=== PATIENT | female | born 1965 | race Caucasian/White ===

== ENCOUNTER 2018-01-06 21:47 | Emergency (ER) | payer BC, OTHER ==
[2018-01-06] MEDS ORDERED: Ondansetron 4 MG/2 ML SDV IVPUSH ONE (22:09)
[2018-01-06] MEDS ORDERED: Ketorolac 30 MG/ML SDV IVPUSH ONE (22:09)
[2018-01-06] MEDS ORDERED: Sodium Chloride 0.9% 1,000 ML IV ONE (22:09)
--- NOTE | 2018-01-06 22:11 | EDM.PDOC ---
ED HPI GENERAL MEDICAL PROBLEM - General Chief Complaint: Gastrointestinal Problem Stated Complaint: ABDOMINAL PAIN/CONSTIPATION Time Seen by Provider: 01/06/18 22:10 Source of Information: Reports: Patient - History of Present Illness INITIAL COMMENTS - FREE TEXT/NARRATIVE: HISTORY AND PHYSICAL: History of present illness: Patient presents with history of nausea and feeling of vomiting over the last 10 days she is not had a bowel movement she is nondistended rates pain 3 out of 10 diffuse nonfocal no active vomiting here in the emergency room she did get some Zofran no fever chills sweats no chest pain shortness breath headache dizziness or palpitation no urine symptoms I did discuss case with Dr. Hughes after initial workup he recommended oral retention enema O we did get a large bowel movement with this, on rectal exam there was no stool plug guaiac was negative Last colonoscopy at 41 years old due to her mother's history of cancer patient relates pancreatic cancer with extension to the colon however I question colon cancer with metastases as she received the colonoscopy Review of systems: As per history of present illness and below otherwise all systems reviewed and negative. Past medical history: As per history of present illness and as reviewed below otherwise noncontributory. Surgical history: As per history of present illness and as reviewed below otherwise noncontributory. Social history: No reported history of drug or alcohol abuse. Family history: As per history of present illness and as reviewed below otherwise noncontributory. Physical exam: HEENT: Atraumatic, normocephalic, pupils reactive, negative for conjunctival pallor or scleral icterus, mucous membranes moist, throat clear, neck supple, nontender, trachea midline. Lungs: Clear to auscultation, breath sounds equal bilaterally, chest nontender. Heart: S1S2, regular, negative for clicks, rubs, or JVD. Abdomen: Soft, nondistended, nontender. Negative for masses or hepatosplenomegaly. Negative for costovertebral tenderness. Pelvis: Stable nontender. Genitourinary: No mass scar or lesion internal or external guaiac negative Rectal: Deferred. Extremities: Atraumatic, negative for cords or calf pain. Neurovascular unremarkable. Neuro: Awake, alert, oriented. Cranial nerves II through XII unremarkable. Cerebellum unremarkable. Motor and sensory unremarkable throughout. Exam nonfocal. Diagnostics: [CBC CMP UA lipase CT abdomen pelvis with contrast ] Therapeutics: [Normal saline 1 L bolus Zofran 8 mg Iv Toradol 30 mg IV Reglan 10 mg IV ] Dr. Hughes recommends a bowel prep with clear liquid diet until clear consisting of MiraLAX 1 pint/followed by 32 ounces of Gatorade/followed by 1 pint of MiraLAX Follow-up with general surgery for colonoscopy consideration Impression: [Abdominal pain]-resolved Definitive disposition and diagnosis as appropriate pending reevaluation and review of above. abdomen Pain Score (Numeric/FACES): 6 - Related Data Allergies Allergy/AdvReac Type Severity Reaction Status Date / Time Penicillins Allergy throat Verified 01/06/18 22:09 swelling Home Meds: Home Meds Loratadine [Claritin] 1 tab PO DAILY 01/06/18 [History] Past Medical History Other OB/BYN History: x 1; hysterectomy Social & Family History - Tobacco Use Smoking Status *Q: Never Smoker Years of Tobacco use: 25 - Alcohol Use Days Per Week of Alcohol Use: 0 - Recreational Drug Use Recreational Drug Use: No ED ROS GENERAL - Review of Systems Review Of Systems: ROS reveals no pertinent complaints other than HPI. ED EXAM, GENERAL - Physical Exam Exam: See Below Course - Vital Signs Last Recorded V/S: Last Vital Signs Temp 98.3 F 01/06/18 21:47 Pulse 72 01/06/18 21:47 Resp 18 01/06/18 21:47 BP 133/79 01/06/18 21:47 Pulse Ox 99 01/06/18 21:47 - Orders/Labs/Meds Orders: Active Orders 24 hr Category Date Time Status Abdomen Pelvis w Cont [CT] Stat Exams 01/06/18 22:09 Taken Labs: Laboratory Tests 01/06/18 01/06/18 Range/Units 22:03 22:03 WBC 9.08 (4.0-11.0) K/uL RBC 4.00 L (4.30-5.90) M/uL Hgb 12.8 (12.0-16.0) g/dL Hct 37.2 (36.0-46.0) % MCV 93.0 (80.0-98.0) fL MCH 32.0 (27.0-32.0) pg MCHC 34.4 (31.0-37.0) g/dL RDW Std Deviation 41.8 (28.0-62.0) fl RDW Coeff of Immanuel 12 (11.0-15.0) % Plt Count 258 (150-400) K/uL MPV 9.80 (7.40-12.00) fL Neut % (Auto) 54.1 (48.0-80.0) % Lymph % (Auto) 34.9 (16.0-40.0) % [place] % (Auto) 8.9 (0.0-15.0) % Eos % (Auto) 1.8 (0.0-7.0) % Baso % (Auto) 0.3 (0.0-1.5) % Neut # (Auto) 4.9 (1.4-5.7) K/uL Lymph # (Auto) 3.2 H (0.6-2.4) K/uL [place] # (Auto) 0.8 (0.0-0.8) K/uL Eos # (Auto) 0.2 (0.0-0.7) K/uL Baso # (Auto) 0.0 (0.0-0.1) K/uL Nucleated RBC % 0.0 /100WBC Nucleated RBCs # 0 K/uL Sodium 140 (136-145) mmol/L Potassium 3.8 (3.5-5.1) mmol/L Chloride 107 (98-107) mmol/L Carbon Dioxide 25.5 (21.0-32.0) mmol/L BUN 17 (7.0-18.0) mg/dL Creatinine 0.8 (0.6-1.0) mg/dL Est Cr Clr Drug Dosing 65.80 mL/min Estimated GFR (MDRD) > 60.0 ml/min Glucose 109 H (74-106) mg/dL Calcium 9.9 (8.5-10.1) mg/dL Total Bilirubin 0.2 (0.2-1.0) mg/dL AST 18 (15-37) IU/L ALT 21 (14-63) IU/L Alkaline Phosphatase 96 (46-116) U/L Troponin I < 0.050 (0.000-0.056) ng/mL Total Protein 7.6 (6.4-8.2) g/dL Albumin 3.9 (3.4-5.0) g/dL Globulin 3.7 H (2.0-3.5) g/dL Albumin/Globulin Ratio 1.1 L (1.3-2.8) Meds: Medications Discontinued Medications Generic Name Dose Route Start Last Admin Trade Name Mague PRN Reason Stop Dose Admin Sodium Chloride 1,000 mls @ 999 mls/hr 01/06/18 22:09 01/06/18 22:31 Normal Saline IV 01/06/18 23:09 999 mls/hr STAT ONE Administration Iopamidol 90 ml 01/06/18 23:10 01/06/18 23:10 Isovue Multipack-370 (76%) IVPUSH 01/06/18 23:11 90 ml ONETIME ONE Administration Ketorolac Tromethamine 30 mg 01/06/18 22:09 01/06/18 22:34 Toradol IVPUSH 01/06/18 22:10 30 mg ONETIME ONE Administration Metoclopramide HCl 10 mg 01/07/18 01:04 01/07/18 01:48 Reglan IV 01/07/18 01:05 10 mg ONETIME ONE Administration Ondansetron HCl 8 mg 01/06/18 22:09 01/06/18 22:32 Zofran IVPUSH 01/06/18 22:10 8 mg ONETIME ONE Administration Departure - Departure Time of Disposition: 01:56 Disposition: Home, Self-Care 01 Condition: Good Clinical Impression: Constipation, Abdominal pain - Discharge Information Referrals: Génesis Corrales, REUSE TECHNICIAN [Primary Care Provider] - Forms: ED Department Discharge Additional Instructions: Clear liquid diet Bowel prep as discussed MiraLAX one plane followed by 32 ounces of Gatorade followed by 1 pint of MiraLAX Clear liquid diet until bowels are clear--meaning water and Gatorade Call for appointment with general surgery and appropriate follow-up number provided below Return if symptoms persist or worsen or new concerning symptoms develop [facility] - General Surgery Professional Building [address] [place] [address], [address] [place] [address] The following information is given to patients seen in the emergency department who are being discharged to home. This information is to outline your options for follow-up care. We provide all patients seen in our emergency department with a follow-up referral. The need for follow-up, as well as the timing and circumstances, are variable depending upon the specifics of your emergency department visit. If you don't have a primary care physician on staff, we will provide you with a referral. We always advise you to contact your personal physician following an emergency department visit to inform them of the circumstance of the visit and for follow-up with them and/or the need for any referrals to a consulting specialist. The emergency department will also refer you to a specialist when appropriate. This referral assures that you have the opportunity for follow-up care with a specialist. All of these measure are taken in an effort to provide you with optimal care, which includes your follow-up. Under all circumstances we always encourage you to contact your private physician who remains a resource for coordinating your care. When calling for follow-up care, please make the office aware that this follow-up is from your recent emergency room visit. If for any reason you are refused follow-up, please contact the [facility] emergency department at and asked to speak to the emergency department charge nurse. - My Orders Last 24 Hours: My Active Orders 01/06/18 22:09 Abdomen Pelvis w Cont [CT] Stat - Assessment/Plan Last 24 Hours: My Active Orders 01/06/18 22:09 Abdomen Pelvis w Cont [CT] Stat
[2018-01-06 22:45] LABS: CHLORIDE,CL 107 mmol/L (98-107); SODIUM,NA 140 mmol/L (136-145)
[2018-01-06] MEDS ORDERED: Iopamidol 755 MG/ML 200 ML Multipack Bottle IVPUSH ONE (23:10)
[2018-01-07] MEDS ORDERED: Metoclopramide 10 MG/2 ML SDV IV ONE (01:04)
[2018-01-07 02:12] VITALS: BP 121/73
--- NOTE | 2018-01-07 12:43 | CT ---
EXAM DATE: 01/06/18 PATIENT'S AGE: 52 Patient: OCTAVIO GANDHI Facility: [place], [place] Site . Site : 1965 Study: CT Abdomen/Pelvis W [place]LIN [id number]/[id number] 11:22:29 PM Ordering Physician: Doctor William Final Report: INDICATION: Abdominal pain for 3 days. Constipation for 10 days. Nausea and vomiting. TECHNIQUE: CT abdomen and pelvis acquired with i.v. 90 mL Isovue 370. Coronal and sagittal reformats were obtained. COMPARISON: Comparison CT dated 11/28/2013. FINDINGS: Senior Lead Project Manager CT images: Nonobstructive bowel gas pattern. Lower chest: Unremarkable. Liver: Unremarkable. Spleen: Unremarkable. Pancreas: Unremarkable. Gallbladder and bile ducts: Unremarkable. Kidneys: Mild fullness of right renal collecting system. Calcifications in lower pole of right kidney. No obstructing right ureteral calculi. Normal left kidney. No left hydronephrosis or abnormal dilatation of the left ureter. Adrenal glands: Unremarkable. GI tract: Unremarkable. The appendix is normal in appearance and size. Vascular: Unremarkable. Lymph nodes: No pathologically enlarged pelvic or retroperitoneal lymph nodes. Miscellaneous: The degree of mesenteric fat stranding in the left central mesentery with scattered small mesenteric lymph nodes. No soft tissue mass or calcifications. Pelvic Organs: Uterus not identified. Bladder incompletely distended. No free pelvic fluid. Bones: Unremarkable for age. Moderate degenerative disc disease at L5-S1. IMPRESSION: 1. Mild mesenteric fat stranding in the left upper abdomen with scattered small mesenteric lymph nodes, consider possible sclerosing mesenteritis. No pathologically enlarged retroperitoneal or pelvic lymph nodes. Similar findings noted in the left central mesentery on prior CT from November 2013. 2. Right nephrolithiasis with mild fullness to the right renal collecting system and possible right extrarenal pelvis. No obstructing right ureteral calculus. 3. Normal appendix. Dictated by Thomas Del Angel MD @ 01/06/2018 11:45:53 PM Please note that all CT scans at this facility use dose modulation, iterative reconstruction, and/or weight-based dosing when appropriate to reduce radiation dose to as low as reasonably achievable. Dictated by: Thomas Del Angel MD @ 01/06/2018 23:46:03 (Electronic Signature) Report Signed by Proxy. MTDD
== END 2018-01-07 02:09 | disposition home or self-care (01) ==
LOC: MW.ED 21:47
DX: K59.00 Constipation, unspecified (principal); Z85.07 Personal history of malignant neoplasm of pancreas; Z88.0 Allergy status to penicillin; Z79.899 Other long term (current) drug therapy
CPT/HCPCS: 36415; 74177; 80053; 84484; 85025; 96361; 96374; 96375; 99284; J1885; J2405; J2765; J7040; Q9967

== ENCOUNTER 2019-06-27 14:57 | Emergency (ER) | payer BC ==
[2019-06-27] MEDS ORDERED: Sodium Chloride 0.9% 2.5 ML Syringe FLUSH PRN (15:15)
[2019-06-27] MEDS ORDERED: Sodium Chloride 0.9% 10 ML Syringe FLUSH PRN (15:15)
[2019-06-27] MEDS ORDERED: Ondansetron 4 MG/2 ML SDV IVPUSH ONE (15:22)
[2019-06-27] MEDS ORDERED: Sodium Chloride 0.9% 1,000 ML IV ONE (15:22)
[2019-06-27] MEDS ORDERED: Ketorolac 30 MG/ML SDV IVPUSH ONE (15:22)
--- NOTE | 2019-06-27 15:24 | EDM.PDOC ---
ED HPI GENERAL MEDICAL PROBLEM - General Chief Complaint: General Stated Complaint: KIDNEY STONES Time Seen by Provider: 06/27/19 15:14 Source of Information: Reports: Patient History Limitations: Reports: No Limitations - History of Present Illness INITIAL COMMENTS - FREE TEXT/NARRATIVE: HISTORY AND PHYSICAL: History of present illness: Patient is a 53-year-old female presents to the ED today with concern of right- sided flank pain. Patient states she's had a dull sensation in the right flank over the past couple days but starting today the pain is increased. Patient states she has not taken anything today for her symptoms. Patient states that she has had kidney stones in the past and that her symptoms today feel like past kidney stones. Patient denies any trauma or injury to the area. Patient denies any health history or any other symptoms or concerns. Patient states she has had a history of hysterectomy but denies any other abdominal surgery Patient denies fever, chills, chest pain, shortness of breath, or cough. Denies headache, neck stiff ness, change in vision, syncope, or near syncope. Denies nausea, vomiting, diarrhea, constipation, or dysuria. Has not noted any blood in urine or stool. Patient has been eating and drinking appropriately. Review of systems: As per history of present illness and below otherwise all systems reviewed and negative. Past medical history: As per history of present illness and as reviewed below otherwise noncontributory. Surgical history: As per history of present illness and as reviewed below otherwise noncontributory. Social history: See social history for further information Family history: As per history of present illness and as reviewed below otherwise noncontributory. Physical exam: General: Patient is alert, oriented, and in no acute distress. Patient sitting comfortably on exam table. HEENT: Atraumatic, normocephalic, pupils equal and reactive bilaterally, negative for conjunctival pallor or scleral icterus, mucous membranes moist, TMs normal bilaterally, throat clear, neck supple, nontender, trachea midline. No drooling or trismus noted. No meningeal signs. No hot potato voice noted. Lungs: Clear to auscultation, breath sounds equal bilaterally, chest nontender. Heart: S1S2, regular rate and rhythm without overt murmur Abdomen: Soft, nondistended, nontender. Negative for masses or hepatosplenomegaly. Negative for costovertebral tenderness. Pelvis: Stable nontender. Genitourinary: Deferred. Rectal: Deferred. Skin: Intact, warm, dry. No lesions or rashes noted. Extremities: Atraumatic, negative for cords or calf pain. Neurovascular unremarkable. Neuro: Awake, alert, oriented. Cranial nerves II through XII unremarkable. Cerebellum unremarkable. Motor and sensory unremarkable throughout. Exam nonfocal. Notes: Discussed the importance for follow-up with urologist and primary care provider. Voices understanding and is agreeable to plan of care. Denies any further questions or concerns at this time. Diagnostics: CBC, CMP, UA, lipase, abdominal pelvic CT Therapeutics: Saline, Toradol, Zofran Prescription: None Impression: Renal calculi, non obstructive Constipation Plan: 1. Drink one half bottle of magnesium citrate today. If you don't have a bowel movement by tomorrow morning drink the other one half bottle. 2. You can alternate ibuprofen and Tylenol as directed for pain and discomfort. 3. Follow up with your primary care provider and urologist as discussed. Return to the ED as needed and as discussed. Definitive disposition and diagnosis as appropriate pending reevaluation and review of above. Right Flank Pain Score (Numeric/FACES): 7 - Related Data Allergies Allergy/AdvReac Type Severity Reaction Status Date / Time Penicillins Allergy throat Verified 06/27/19 15:12 swelling Home Meds: Home Meds Loratadine [Claritin] 1 tab PO DAILY 01/06/18 [History] Zolpidem Tartrate [Ambien Cr] 6.25 mg PO DAILY 06/27/19 [History] Past Medical History DIRECTOR BEHAVIORAL HEALTH History: Reports: Other DIRECTOR BEHAVIORAL HEALTH History: x 1; hysterectomy - Infectious Disease History Infectious Disease History: Reports: Mumps - Past Surgical History Female Surgical History: Reports: Section, Hysterectomy Social & Family History - Family History Family Medical History: Noncontributory - Tobacco Use Smoking Status *Q: Current Every Day Smoker Years of Tobacco use: 30 Packs/Tins Daily: 1 - Caffeine Use Caffeine Use: Reports: Coffee, Soda - Recreational Drug Use Recreational Drug Use: No ED ROS GENERAL - Review of Systems Review Of Systems: ROS reveals no pertinent complaints other than HPI. ED EXAM, GENERAL - Physical Exam Exam: See Below (see dictation) Course - Vital Signs Last Recorded V/S: Last Vital Signs Temp 97.6 F 06/27/19 15:12 Pulse 66 06/27/19 15:12 Resp 17 06/27/19 15:12 BP 138/68 06/27/19 15:12 Pulse Ox 97 06/27/19 15:12 - Orders/Labs/Meds Orders: Active Orders 24 hr Category Date Time Status Sodium Chloride 0.9% [Normal Saline] 1,000 ml Med 06/27/19 15:22 Active IV BOLUS Sodium Chloride 0.9% [Saline Flush] Med 06/27/19 15:15 Active 10 ml FLUSH ASDIRECTED PRN Sodium Chloride 0.9% [Saline Flush] Med 06/27/19 15:15 Active 2.5 ml FLUSH ASDIRECTED PRN Saline Lock Insert [OM.PC] Stat Oth 06/27/19 15:15 Ordered Medication Orders Sodium Chloride (Normal Saline) 1,000 mls @ 999 mls/hr IV BOLUS ONE Stop: 06/27/19 16:22 Last Admin: 06/27/19 15:33 Dose: 999 mls/hr Sodium Chloride (Saline Flush) 10 ml FLUSH ASDIRECTED PRN PRN Reason: Keep Vein Open Sodium Chloride (Saline Flush) 2.5 ml FLUSH ASDIRECTED PRN PRN Reason: Keep Vein Open Labs: Laboratory Tests 06/27/19 06/27/19 06/27/19 Range/Units 15:27 15:37 15:37 WBC 8.89 (4.0-11.0) K/uL RBC 4.14 L (4.30-5.90) M/uL Hgb 13.4 (12.0-16.0) g/dL Hct 40.0 (36.0-46.0) % MCV 96.6 (80.0-98.0) fL MCH 32.4 H (27.0-32.0) pg MCHC 33.5 (31.0-37.0) g/dL RDW Std Deviation 43.6 (28.0-62.0) fl RDW Coeff of Immanuel 12 (11.0-15.0) % Plt Count 265 (150-400) K/uL MPV 10.00 (7.40-12.00) fL Neut % (Auto) 54.2 (48.0-80.0) % Lymph % (Auto) 35.0 (16.0-40.0) % [place] % (Auto) 8.5 (0.0-15.0) % Eos % (Auto) 1.9 (0.0-7.0) % Baso % (Auto) 0.4 (0.0-1.5) % Neut # (Auto) 4.8 (1.4-5.7) K/uL Lymph # (Auto) 3.1 H (0.6-2.4) K/uL [place] # (Auto) 0.8 (0.0-0.8) K/uL Eos # (Auto) 0.2 (0.0-0.7) K/uL Baso # (Auto) 0.0 (0.0-0.1) K/uL Add Manual Diff Nucleated RBC % 0.0 /100WBC Nucleated RBCs # 0 K/uL Sodium 139 (136-145) mmol/L Potassium 3.7 (3.5-5.1) mmol/L Chloride 102 (98-107) mmol/L Carbon Dioxide 27.5 (21.0-32.0) mmol/L BUN 19 H (7.0-18.0) mg/dL Creatinine 0.8 (0.6-1.0) mg/dL Est Cr Clr Drug Dosing 65.06 mL/min Estimated GFR (MDRD) > 60.0 ml/min Glucose 83 (74-106) mg/dL Calcium 9.8 (8.5-10.1) mg/dL Total Bilirubin 0.3 (0.2-1.0) mg/dL AST 16 (15-37) IU/L ALT 19 (14-63) IU/L Alkaline Phosphatase 109 (46-116) U/L Total Protein 7.9 (6.4-8.2) g/dL Albumin 3.9 (3.4-5.0) g/dL Globulin 4.0 (2.6-4.0) g/dL Albumin/Globulin Ratio 1.0 (0.9-1.6) Lipase 101 (73-393) U/L Urine Color YELLOW Urine Appearance CLEAR Urine pH 5.5 (5.0-8.0) Ur Specific [place] 1.020 (1.001-1.035) Urine Protein NEGATIVE (NEGATIVE) mg/dL Urine Glucose (UA) NEGATIVE (NEGATIVE) mg/dL Urine Ketones NEGATIVE (NEGATIVE) mg/dL Urine Occult Blood NEGATIVE (NEGATIVE) Urine Nitrite NEGATIVE (NEGATIVE) Urine Bilirubin NEGATIVE (NEGATIVE) Urine Urobilinogen 0.2 (<2.0) EU/dL Ur Leukocyte Esterase NEGATIVE (NEGATIVE) Meds: Medications Generic Name Dose Route Start Last Admin Trade Name Freq PRN Reason Stop Dose Admin Sodium Chloride 1,000 mls @ 999 mls/hr 06/27/19 15:22 06/27/19 15:33 Normal Saline IV 06/27/19 16:22 999 mls/hr BOLUS ONE Administration Sodium Chloride 10 ml 06/27/19 15:15 Saline Flush FLUSH ASDIRECTED PRN Keep Vein Open Sodium Chloride 2.5 ml 06/27/19 15:15 Saline Flush FLUSH ASDIRECTED PRN Keep Vein Open Discontinued Medications Generic Name Dose Route Start Last Admin Trade Name Freq PRN Reason Stop Dose Admin Ketorolac Tromethamine 30 mg 06/27/19 15:22 06/27/19 15:32 Toradol IVPUSH 06/27/19 15:23 30 mg ONETIME ONE Administration Ondansetron HCl 4 mg 06/27/19 15:22 06/27/19 15:32 Zofran IVPUSH 06/27/19 15:23 4 mg ONETIME ONE Administration Departure - Departure Time of Disposition: 16:19 Disposition: Home, Self-Care 01 Clinical Impression: Renal calculi Constipation Qualifiers: Constipation type: unspecified constipation type Qualified Code(s): K59.00 - Constipation, unspecified - Discharge Information Referrals: Génesis Corrales FOREIGN LANGUAGE STENOGRAPHER [Primary Care Provider] - Forms: ED Department Discharge Additional Instructions: The following information is given to patients seen in the emergency department who are being discharged to home. This information is to outline your options for follow-up care. We provide all patients seen in our emergency department with a follow-up referral. The need for follow-up, as well as the timing and circumstances, are variable depending upon the specifics of your emergency department visit. If you don't have a primary care physician on staff, we will provide you with a referral. We always advise you to contact your personal physician following an emergency department visit to inform them of the circumstance of the visit and for follow-up with them and/or the need for any referrals to a consulting specialist. The emergency department will also refer you to a specialist when appropriate. This referral assures that you have the opportunity for follow-up care with a specialist. All of these measure are taken in an effort to provide you with optimal care, which includes your follow-up. Under all circumstances we always encourage you to contact your private physician who remains a resource for coordinating your care. When calling for follow-up care, please make the office aware that this follow-up is from your recent emergency room visit. If for any reason you are refused follow-up, please contact the [facility] Emergency Department at and asked to speak to the emergency department charge nurse. [facility] [address] [place] [address] [address] [facility] - Urology [address] [place] [id number] 1. Drink one half bottle of magnesium citrate today. If you don't have a bowel movement by tomorrow morning drink the other one half bottle. 2. You can alternate ibuprofen and Tylenol as directed for pain and discomfort. 3. Follow up with your primary care provider and urologist as discussed. Return to the ED as needed and as discussed. - My Orders Last 24 Hours: My Active Orders 06/27/19 15:15 Sodium Chloride 0.9% [Saline Flush] 10 ml FLUSH ASDIRECTED PRN Sodium Chloride 0.9% [Saline Flush] 2.5 ml FLUSH ASDIRECTED PRN Saline Lock Insert [OM.PC] Stat 06/27/19 15:22 Sodium Chloride 0.9% [Normal Saline] 1,000 ml IV BOLUS - Assessment/Plan Last 24 Hours: My Active Orders 06/27/19 15:15 Sodium Chloride 0.9% [Saline Flush] 10 ml FLUSH ASDIRECTED PRN Sodium Chloride 0.9% [Saline Flush] 2.5 ml FLUSH ASDIRECTED PRN Saline Lock Insert [OM.PC] Stat 06/27/19 15:22 Sodium Chloride 0.9% [Normal Saline] 1,000 ml IV BOLUS
[2019-06-27 16:07] LABS: BLOOD UREA NITROGEN,BUN 19 mg/dL (7.0-18.0); CARBON DIOXIDE,CO2 27.5 mmol/L (21.0-32.0); CHLORIDE,CL 102 mmol/L (98-107); GLUCOSE RANDOM 83 mg/dL (74-106); LIPASE 101 U/L (73-393); POTASSIUM,K 3.7 mmol/L (3.5-5.1); SODIUM,NA 139 mmol/L (136-145)
--- NOTE | 2019-06-27 16:13 | CT ---
INDICATION: Right flank pain; history of kidney stones. COMPARISON: CT abdomen and pelvis with intravenous contrast January 06, 2018. TECHNIQUE: CT abdomen and pelvis without intravenous or oral contrast; coronal and sagittal reformats. FINDINGS: No abnormal intra pulmonary nodular densities through the lung bases. No evidence of pleural effusion. Normal size cardiac silhouette without any evidence of pericardial effusion. No focal hepatic or splenic pathology. No pancreatic pathology. Gallbladder is unremarkable. No adrenal pathology. Nonobstructing renal calculi lower pole calyx right kidney; stable in appearance. Prominent intrarenal collecting system as well as the right renal pelvis without any interval change. No evidence of dilatation of the right ureter. No ureteral stones on either side. No kidneys stones or obstructive uropathy on the left side. No retroperitoneal lymphadenopathy. No evidence of abdominal or pelvic ascites. Normal appendix. Diverticulosis sigmoid colon without any CT evidence of diverticulitis or abscess. No pneumoperitoneum or intestinal obstruction. Copious amounts of retained stool identified in the colon. Status post hysterectomy. IMPRESSION: 1. Nonobstructing renal calculi lower pole calyx right kidney. 2. Prominent intrarenal collecting system and renal pelvis on the right without any interval change. 3. No ureteral calculi on either side. 4. Normal appendix. 5. Copious amounts of retained stool identified in the colon. 6. Status post hysterectomy. Please note that all CT scans at this facility use dose modulation, iterative reconstruction, and/or weight-based dosing when appropriate to reduce radiation dose to as low as reasonably achievable. Dictated by Min Araiza MD @ Jun 27 2019 4:06PM Signed by Dr. Min Araiza @ Jun 27 2019 4:12PM
[2019-06-27 16:32] VITALS: BP 124/67; PULSE 63
== END 2019-06-27 16:30 | disposition home or self-care (01) ==
LOC: MW.ED 14:57
DX: N20.0 Calculus of kidney (principal); F17.210 Nicotine dependence, cigarettes, uncomplicated; Z88.0 Allergy status to penicillin
CPT/HCPCS: 74176; 80053; 81003; 83690; 85025; 96361; 96374; 99284; J1885; J2405; J7040

== ENCOUNTER 2025-02-12 18:57 | Emergency (ER) | payer BC ==
[2025-02-12 19:43] LABS: APPEARANCE,URINE CLEAR; BILIRUBIN,URINE NEGATIVE (NEGATIVE); COLOR,URINE YELLOW; GLUCOSE,URINE NEGATIVE (NEGATIVE); KETONES,URINE NEGATIVE (NEGATIVE); LEUKOCYTE ESTERASE,URINE NEGATIVE (NEGATIVE); NITRITE,URINE NEGATIVE (NEGATIVE); OCCULT BLOOD,URINE MODERATE (NEGATIVE); PROTEIN,URINE NEGATIVE (NEGATIVE); UROBILINOGEN,URINE 0.2 EU/dL (<2.0)
[2025-02-12 19:56] LABS: BACTERIA,URINE RARE (NEGATIVE); EPITHELIAL CELLS,URINE RARE (NONE-FEW); WBC,URINE 0-1 (0-5/HPF)
[2025-02-12] MEDS: HYDROmorphone 0.5 MG/0.5 ML Syringe IVPUSH ONE (20:00)
[2025-02-12] MEDS: Ketorolac 30 MG/ML SDV IVPUSH ONE (20:00)
[2025-02-12] MEDS: Ondansetron 4 MG/2 ML SDV IVPUSH ONE (20:00)
[2025-02-12] MEDS: Sodium Chloride 0.9% 1,000 ML IV ONE (20:01)
[2025-02-12 20:04] LABS: BASOPHILS ABSOLUTE AUTO 0.05 K/uL (0.00-0.20); BASOPHILS PERCENT AUTO 0.5 % (0.0-1.0); EOSINOPHILS ABSOLUTE AUTO 0.17 K/uL (0.00-0.45); EOSINOPHILS PERCENT AUTO 1.5 % (0.0-6.0); HEMATOCRIT 38.1 % (37.0-47.0); IMMATURE GRAN ABSOLUTE AUTO 0.03 K/uL (0.00-0.05); IMMATURE GRAN PERCENT AUTO 0.3 % (0.0-0.4); LYMPHOCYTES ABSOLUTE AUTO 3.37 K/uL (1.00-4.80); LYMPHOCYTES PERCENT AUTO 30.3 % (24.0-44.0); MEAN CORPUSCULAR HEMOGLOBIN 31.8 pg (28.0-32.0); MEAN CORPUSCULAR HGB CONC 34.1 g/dL (32.0-36.0); MEAN CORPUSCULAR VOLUME 93.2 fL (83.0-99.0); MEAN PLATELET VOLUME 9.7 fL (9.4-12.3); MONOCYTES ABSOLUTE AUTO 0.78 K/uL (0.00-0.80); NEUTROPHILS ABSOLUTE AUTO 6.71 K/uL (1.80-7.70); NEUTROPHILS PERCENT AUTO 60.4 % (41.0-71.0); PLATELET COUNT,PLT 261 K/uL (150-400); RED BLOOD CELL COUNT 4.09 M/uL (4.10-5.30); WHITE BLOOD CELL COUNT,WBC 11.11 K/uL (3.9-11.3)
[2025-02-12 20:30] LABS: A/G RATIO 1.1 (0.9-1.6); ALBUMIN 3.9 g/dL (3.4-5.0); BILIRUBIN TOTAL 0.2 mg/dL (0.2-1.0); CALCIUM 9.7 mg/dL (8.5-10.1); CARBON DIOXIDE,CO2 28.5 mmol/L (21.0-32.0); CREATININE 0.9 mg/dL (0.6-1.0); EST CRCL DRUG DOSING (CG) 53.89 mL/min; POTASSIUM,K 3.9 mmol/L (3.5-5.1); PROTEIN TOTAL,TP 7.3 g/dL (6.4-8.2)
[2025-02-13] MEDS: traMADol 50 MG Tab PO ONE (00:16)
[2025-02-13 00:19] VITALS: BP 132/84; PULSE 68
== END 2025-02-13 00:18 | disposition home or self-care (01) ==
LOC: MW.ED 18:57
DX: N13.2 Hydronephrosis with renal and ureteral calculous obstruction (principal); F17.210 Nicotine dependence, cigarettes, uncomplicated; Z88.0 Allergy status to penicillin; Z79.899 Other long term (current) drug therapy
CPT/HCPCS: 36415; 74176; 80053; 81001; 85025; 96361; 96374; 96375; 99284; A9270; J1885; J2405; J7030; 99283